=== PATIENT | female | born 1950 | race Caucasian/White ===

== ENCOUNTER 2017-06-24 14:52 | Emergency (ER) | payer BC ==
--- NOTE | 2017-06-24 16:22 | EDM.PDOC ---
ED HPI GENERAL MEDICAL PROBLEM - General Chief Complaint: Neurological Problem Stated Complaint: CONFUSION, "NOT FEELING RIGHT" Time Seen by Provider: 06/24/17 15:00 Source of Information: Reports: Patient, Family History Limitations: Reports: Altered Mental Status - History of Present Illness INITIAL COMMENTS - FREE TEXT/NARRATIVE: Patient presents to ER from clinic where initial work up was ordered (see copies and reports in [employer]) with family with concerns of acute confusion. 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 Called her at around noon and he relates she seemed fine on the phone, said she wasn't feeling well and was going to finish up a few things and come home early. They received a phone call then from the school about 45 minutes later that said they would meet them enroute to home as the school did not feel she was safe to drive and "seemed off ". [id number] who is a nurse states she seems to have trouble finding her words, will answer appropriately but takes time to answer each question. Patient states she has been feeling a bit nauseated lately but ROS is otherwise negative. She denies taking any new medications. relates she does seem "foggy like when she was on pain pills a couple of years ago for her knee surgery". She denies using any of them. Was seen by Dr. Maurer on Wednesday for arm pain but per notes, was not started on any new medications. Onset: Today, Sudden Duration: Hour(s): Location: Reports: Generalized Associated Symptoms: Reports: Confusion, Nausea/Vomiting, Other (fatigue). Denies: Chest Pain, Cough, cough w sputum, Diaphoresis, Fever/Chills, Headaches , Loss of Appetite, Malaise, Rash, Seizure, Shortness of Breath ( ), Syncope, Weakness - Related Data Allergies Allergy/AdvReac Type Severity Reaction Status Date / Time Sulfa (Sulfonamide AdvReac Rash Verified 06/24/17 15:59 Antibiotics) Home Meds: Home Meds Albuterol [Ventolin HFA] 2 puff INH QID PRN 07/13/13 [History] Aspirin [Low Dose Aspirin EC] 81 mg PO DAILY 07/13/13 [History] Cholecalciferol (Vitamin D3) [Vitamin D] 4,000 unit PO DAILY 07/13/13 [History] Fluticasone/Salmeterol [Advair 250-50 Diskus] 1 puff INH DAILY 07/13/13 [History ] Ibuprofen 400 mg PO BID PRN 07/13/13 [History] Lutein 20 mg PO DAILY 07/13/13 [History] Multivitamin [Multi Vitamin Daily] 1 each PO DAILY 07/13/13 [History] Naproxen Sodium [Aleve] 220 mg PO ASDIRECTED PRN 07/13/13 [History] [place]-3/DHA/Epa/Fish Oil [[place]-3 Fish Oil 1,000 MG Sfgl] 1,000 mg PO DAILY [History] Vitamin E 1,000 units PO DAILY 07/13/13 [History] predniSONE [Prednisone] 1 mg PO DAILY 07/13/13 [History] Fluticasone/Salmeterol [Advair 250-50 Diskus] 1 inh INH BID PRN 06/24/17 [ History] Past Medical History Respiratory History: Reports: Asthma Musculoskeletal History: Reports: Other (See Below) (inflammatory arthritis) Social & Family History - Family History Family Medical History: Noncontributory - Tobacco Use Smoking Status *Q: Never Smoker - Caffeine Use Caffeine Use: Reports: None - Recreational Drug Use Recreational Drug Use: No ED ROS GENERAL - Review of Systems Review Of Systems: See Below Constitutional: Reports: Malaise, Fatigue. Denies: Fever, Chills, Weakness, Decreased Appetite HEENT: Denies: Ear Discharge, Ear Pain, Rhinitis, Sinus Problem, Throat Pain, Vertigo, Vision Change Respiratory: Denies: Shortness of Breath, Pleuritic Chest Pain, Cough Cardiovascular: Denies: Chest Pain, Edema, Lightheadedness Endocrine: Reports: Fatigue GI/Abdominal: Reports: Diarrhea, Nausea. Denies: Abdominal Pain, Vomiting : Reports: No Symptoms Musculoskeletal: Reports: Arm Pain, Joint Pain Skin: Reports: No Symptoms Neurological: Reports: Confusion, Dizziness, Trouble Speaking (slow to answer questions but does answer them appropriately), Weakness. Denies: Headache, Numbness, Paresthesia, Syncope, Tingling Psychiatric: Reports: No Symptoms - Physical Exam Exam: See Below General Appearance: Alert, WD/WN. No: Anxious Eye Exam: Bilateral Eye: EOMI, PERRL Ears: Normal External Exam, Normal TMs Nose: Normal Inspection, Normal Mucosa, No Blood Throat/Mouth: Normal Inspection, Normal Oropharynx Head Exam: Normocephalic Neck: Normal Inspection, Supple, Non-Tender Respiratory/Chest: No Respiratory Distress, Lungs Clear, Normal Breath Sounds Cardiovascular: Regular Rate, Rhythm GI/Abdominal: Normal Bowel Sounds, Soft, Non-Tender Neuro Exam (Abbreviated): Alert, Oriented, CN II-XII Intact, Normal Cognition, Normal Gait, No Motor/Sensory Deficits, Slow to Respond Extremities: Normal Inspection, Normal Capillary Refill Psychiatric: Normal Affect, Normal Mood Skin Exam: Warm, Dry Course - Vital Signs Last Recorded V/S: Last Vital Signs Temp 97.4 F 06/24/17 14:53 Pulse 77 06/24/17 14:53 Resp 20 06/24/17 14:53 BP 145/74 H 06/24/17 14:53 Pulse Ox 95 06/24/17 14:53 - Orders/Labs/Meds Orders: Active Orders 24 hr Category Date Time Status CULTURE URINE [RM] Stat Lab 06/24/17 15:00 Received DRUG SCREEN URINE BIORAD [URCHEM] Stat Lab 06/24/17 15:16 Ordered - Re-Assessments/Exams Free Text/Narrative Re-Assessment/Exam: 06/24/17 16:40 Patient work up to this point is negative. Few bacteria in urine, sodium 132, otherwise all normal. Did discuss with family and initially plan to admit to observation but family decided would prefer her to be transferred to [facility] for further neurological work up. Contacted Dr. Stafford at [facility], status given, agreed to accept patient in transfer. Risks and benefits of transfer discussed with patient and . Risks of transfer include worsening of condition, vehicle crash and even . Benefits of transfer include specialized neurological work up. risks of nontransfer include worsening status and lack of specialized care. Benefits include care close to home and usual PCP. Agreed to transfer. Departure - Departure Time of Disposition: 16:44 Disposition: DC/Tfer to Acute Hospital 02 Condition: Undetermined Clinical Impression: Expressive aphasia - Discharge Information Referrals: Karina Montelongo PA [Primary Care Provider] - Additional Instructions: Transfer BLS to [facility] to Dr. Stafford - My Orders Last 24 Hours: My Active Orders 06/24/17 15:00 CULTURE URINE [RM] Stat 06/24/17 15:16 DRUG SCREEN URINE BIORAD [URCHEM] Stat - Assessment/Plan Last 24 Hours: My Active Orders 06/24/17 15:00 CULTURE URINE [RM] Stat 06/24/17 15:16 DRUG SCREEN URINE BIORAD [URCHEM] Stat
[2017-06-24] MEDS ORDERED: Sodium Chloride 0.9% 1,000 ML IV SCH (16:45)
== END 2017-06-24 17:07 ==
LOC: CC.ED 14:52
DX: R47.01 Aphasia (principal); J45.909 Unspecified asthma, uncomplicated; R41.0 Disorientation, unspecified; R42 Dizziness and giddiness; Z79.82 Long term (current) use of aspirin; Z79.899 Other long term (current) drug therapy; Z88.2 Allergy status to sulfonamides; Z79.51 Long term (current) use of inhaled steroids
CPT/HCPCS: 36415; 70450; 80048; 81001; 84484; 85025; 86140; 87086; 87804; 93005; 99285; J7030

== ENCOUNTER 2017-07-02 10:54 | Inpatient (IN) | payer BC, MEDICARE ==
[2017-07-02] MEDS ORDERED: Temazepam 15 MG Cap PO PRN (17:39)
[2017-07-02] MEDS ORDERED: Ondansetron 4 MG/2 ML SDV IV PRN (17:39)
[2017-07-02] MEDS ORDERED: Magnesium Hydroxide 400 MG/5 ML Susp 30 ML Cup PO PRN (17:39)
[2017-07-02] MEDS ORDERED: Albuterol 8 GM Inhaler INH PRN (17:48)
[2017-07-02] MEDS ORDERED: NAPROXEN SODIUM 220 MG PO PRN (17:48)
[2017-07-02] MEDS ORDERED: Ibuprofen 200 MG Tab PO PRN (17:48)
[2017-07-02] MEDS: Enoxaparin 40 MG/0.4 ML Syringe SUBCUT SCH (18:18)
[2017-07-02] MEDS: ACYCLOVIR IV SCH (19:11)
[2017-07-02] MEDS: SODIUM CHLORIDE 0.9% IV SCH (19:11)
--- NOTE | 2017-07-02 19:39 | PCM.HP ---
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 She was originally admitted to [facility] in [place] on 06/24/2017 after being transferred from our ED for AMS. Originally her head CT was negative. She was transferred as she was having some difficulty speaking. MRI at [facility] showed bitemporal abnormalities suggesting herpes encephalitis. Spinal tap was completed. Meningitis/encephalitis panel by PCR was negative, as well as seperate HSV by PCR. Neurology was consulted and they also felt that it was herpes encephalitis. She has improved greatly with IV acyclovir. She is to complete a 21 day course of acyclovir. At time of swing bed admission, she needs an additional 14 days. Patient has no complaints at time of assessment. She reports she feels better. She is feeling less confused. Does not have any complaints. Symptom Onset Date: 06/24/17 Duration of Symptoms: Reports: Improving, Resolved Prior to Arrival - Related Data Allergies/Adverse Reactions: Allergies Allergy/AdvReac Type Severity Reaction Status Date / Time Sulfa (Sulfonamide AdvReac Rash Verified 07/02/17 12:10 Antibiotics) Home Medications: Home Meds Albuterol [Ventolin HFA] 2 puff INH QID PRN 07/13/13 [History] Aspirin [Low Dose Aspirin EC] 81 mg PO DAILY 07/13/13 [History] Ibuprofen 400 mg PO BID PRN 07/13/13 [History] Lutein 20 mg PO DAILY 07/13/13 [History] Multivitamin [Multi Vitamin Daily] 1 each PO DAILY 07/13/13 [History] Naproxen Sodium [Aleve] 220 mg PO ASDIRECTED PRN 07/13/13 [History] [place]-3/DHA/Epa/Fish Oil [[place]-3 Fish Oil 1,000 MG Sfgl] 1,000 mg PO DAILY [History] Vitamin E 1,000 units PO DAILY 07/13/13 [History] predniSONE [Prednisone] 2 mg PO DAILY 07/13/13 [History] Fluticasone/Salmeterol [Advair 250-50 Diskus] 1 inh INH BID PRN 06/24/17 [ History] Cholecalciferol (Vitamin D3) [Vitamin D3] 5,000 unit PO DAILY 07/02/17 [History] Past Medical History Respiratory History: Reports: Asthma Musculoskeletal History: Reports: Other (See Below) (inflammatory arthritis) Neurological History: Reports: Other (See Below) Other Neuro History: brain inflammation Social & Family History - Family History Family Medical History: Noncontributory - Tobacco Use Smoking Status *Q: Never Smoker - Caffeine Use Caffeine Use: Reports: None - Recreational Drug Use Recreational Drug Use: No H&P Review of Systems - Review of Systems: Review Of Systems: ROS reveals no pertinent complaints other than HPI. Neurological: Reports: Confusion. Denies: Pre-Existing Deficit, Difficulty Walking, Change in Speech, Gait Disturbance Exam - Exam Exam: See Below - Vital Signs Vital Signs: Last Vital Signs Temp 98.2 F 07/02/17 17:39 Pulse 71 07/02/17 17:39 Resp 20 07/02/17 17:39 BP 114/61 07/02/17 17:39 Pulse Ox 100 07/02/17 17:39 Weight: 194 lb 10.691 oz - Exam Quality Assessment: DVT Prophylaxis General: Alert, Oriented, 4 HEENT: PERRLA, Hearing Intact, Mucosa Moist & [place], Nares Patent, Normal Nasal Septum, Posterior Pharynx Clear, Conjunctiva Clear, EOMI, EACs Clear, TMs Clear Neck: Supple, Trachea Midline, 2 Lungs: Clear to Auscultation, Normal Respiratory Effort Cardiovascular: Regular Rate, Regular Rhythm GI/Abdominal Exam: Normal Bowel Sounds, Soft, Non-Tender, No Organomegaly, No Distention, No Abnormal Bruit, No Mass, Pelvis Stable Back Exam: Normal Inspection, Full Range of Motion, NT Extremities: Normal Inspection, Normal Range of Motion, Non-Tender, No Pedal Edema, Normal Capillary Refill Skin: Warm, Dry, Intact Neurological: Cranial Nerves Intact, Normal Speech. No: Focal Deficit Neuro Extensive - Mental Status: Alert, Oriented x3, Normal Mood/Affect, Normal Cognition, Memory Intact Neuro Extensive - Motor, Sensory, Reflexes: CN II-XII Intact, Normal Gait, Normal Reflexes Psychiatric: Alert, Normal Affect, Normal Mood *Q Meaningful Use (ADM) - VTE *Q VTE Criteria *Q: - Stroke *Q Stroke Criteria *Q: - AMI *Q AMI Criteria *Q: - Problem List (1) Herpes encephalitis SNOMED Code(s): 201665635 ICD Code: B00.4 - HERPESVIRAL ENCEPHALITIS Status: Acute Current Visit: Yes Problem List Initiated/Reviewed/Updated: Yes Orders Last 24hrs: Active Orders 24 hr Category Date Time Status Patient Status [ADT] Routine ADT 07/02/17 17:39 Active Antiembolic Devices [RC] 1000,2200 Care 07/02/17 17:45 Active Oxygen Therapy [RC] .PRN Care 07/02/17 17:39 Active Up With Assistance [RC] .PRN Care 07/02/17 17:39 Active Vital Signs [RC] 0800,2000 Care 07/02/17 17:39 Active Regular Diet [DIET] Diet 07/02/17 Dinner Active Acetaminophen [Tylenol] Med 07/02/17 17:39 Active 650 mg PO Q4H PRN Acyclovir [Zovirax] 615 mg Med 07/02/17 18:00 Active Sodium Chloride 0.9% [Normal Saline] 100 ml IV Q8H Albuterol [Ventolin HFA] Med 07/02/17 17:48 Active 0 gm INH QID PRN Aspirin [Halfprin] Med 07/03/17 08:00 Active 81 mg PO DAILY Enoxaparin [Lovenox] Med 07/02/17 17:45 Active 40 mg SUBCUT Q24H Heparin Sodium [Heparin Lock Flush 100 Units/ML] Med 07/02/17 17:47 Active 300 units FLUSH ASDIRECTED PRN Ibuprofen [Motrin] Med 07/02/17 17:48 Active 400 mg PO BID PRN Lutein [Lutein] Med 07/03/17 08:00 Pending 20 mg PO DAILY Magnesium Hydroxide [Milk of Magnesia] Med 07/02/17 17:39 Active 30 ml PO Q12H PRN Mometasone/Formoterol [Dulera 200-5 MCG] Med 07/02/17 20:00 Active 2 puff IH BID PRN Ondansetron [Zofran] Med 07/02/17 17:39 Active 4 mg IV Q6H PRN Temazepam [Restoril] Med 07/02/17 17:39 Active 15 mg PO BEDTIME PRN predniSONE Med 07/03/17 08:00 Active 2 mg PO DAILY Antiembolic Hose [OM.PC] Per Unit Routine Oth 07/02/17 17:43 Ordered Resuscitation Status Routine Resus Stat 07/02/17 17:39 Ordered Medication Orders Acetaminophen (Tylenol) 650 mg PO Q4H PRN PRN Reason: Pain (Mild 1-3)/fever Albuterol (Ventolin Hfa) 0 gm INH QID PRN PRN Reason: Shortness of Breath Aspirin (Halfprin) 81 mg PO DAILY [facility] Enoxaparin Sodium (Lovenox) 40 mg SUBCUT Q24H [facility] Last Admin: 07/02/17 18:18 Dose: 40 mg Heparin Sodium (Porcine) (Heparin Lock Flush 100 Units/Ml) 300 units FLUSH ASDIRECTED PRN PRN Reason: IV Use Acyclovir 615 mg/ Sodium (Chloride) 112.3 mls @ 112.3 mls/hr IV Q8H [facility] Last Admin: 07/02/17 19:11 Dose: 112.3 mls/hr Ibuprofen (Motrin) 400 mg PO BID PRN PRN Reason: Pain Magnesium Hydroxide (Milk Of Magnesia) 30 ml PO Q12H PRN PRN Reason: Constipation Mometasone Furoate/Formoterol Fumar (Dulera 200-5 Mcg) 2 puff IH BID PRN PRN Reason: Shortness of Breath Lutein 20mg 20 mg PO DAILY [facility] Ondansetron HCl (Zofran) 4 mg IV Q6H PRN PRN Reason: Nausea/Vomiting Prednisone (Prednisone) 2 mg PO DAILY [facility] Temazepam (Restoril) 15 mg PO BEDTIME PRN PRN Reason: Sleep Assessment/Plan Comment:: IV acyclovir as dosed by infectious disease. 615 mg Q 8 hours x 14 days. Patient will need treatment until 07/16/2017.
[2017-07-02] MEDS ORDERED: Formoterol/Mometasone 200-5 MCG 8.8 GM Inhaler IH PRN (20:00)
[2017-07-03] MEDS: ACYCLOVIR IV SCH ×3 (01:29→17:33)
[2017-07-03] MEDS: SODIUM CHLORIDE 0.9% IV SCH ×3 (01:29→17:33)
[2017-07-03] MEDS: predniSONE 1 MG Tab PO SCH (08:10)
[2017-07-03] MEDS: Aspirin 81 MG Tab.EC PO SCH (08:10)
[2017-07-03] MEDS: Acetaminophen 325 MG Tab PO PRN (08:12)
[2017-07-03] MEDS: Enoxaparin 40 MG/0.4 ML Syringe SUBCUT SCH (17:32)
[2017-07-04] MEDS: SODIUM CHLORIDE 0.9% IV SCH ×3 (02:05→17:26)
[2017-07-04] MEDS: ACYCLOVIR IV SCH ×3 (02:05→17:26)
[2017-07-04] MEDS ORDERED: predniSONE 1 MG Tab ONE (07:56)
[2017-07-04] MEDS: predniSONE 1 MG Tab PO SCH (08:25)
[2017-07-04] MEDS: Aspirin 81 MG Tab.EC PO SCH (08:25)
[2017-07-04] MEDS: Acetaminophen 325 MG Tab PO PRN (10:58)
[2017-07-04] MEDS: Enoxaparin 40 MG/0.4 ML Syringe SUBCUT SCH (17:26)
[2017-07-05] MEDS: SODIUM CHLORIDE 0.9% IV SCH ×3 (01:54→17:22)
[2017-07-05] MEDS: ACYCLOVIR IV SCH ×3 (01:54→17:22)
[2017-07-05] MEDS: predniSONE 1 MG Tab PO SCH (07:31)
[2017-07-05] MEDS: Aspirin 81 MG Tab.EC PO SCH (07:31)
--- NOTE | 2017-07-05 08:41 | PN ---
DATE: 07/03/2017 Janet Hi transferred to swing bed from [facility] with a viral encephalitis. She is on IV acyclovir, doing fine. Plan, continue present therapy. KAYDEN/NIKHIL /[id number]
[2017-07-05] MEDS: Enoxaparin 40 MG/0.4 ML Syringe SUBCUT SCH (17:22)
[2017-07-06] MEDS: ACYCLOVIR IV SCH ×3 (02:03→17:58)
[2017-07-06] MEDS: SODIUM CHLORIDE 0.9% IV SCH ×3 (02:03→17:58)
[2017-07-06] MEDS: Aspirin 81 MG Tab.EC PO SCH (07:30)
[2017-07-06] MEDS: predniSONE 1 MG Tab PO SCH (07:30)
[2017-07-06] MEDS: LUTEIN 25 MG PO SCH ×3 (08:53→09:52)
[2017-07-06] MEDS: Enoxaparin 40 MG/0.4 ML Syringe SUBCUT SCH (17:58)
[2017-07-07] MEDS: ACYCLOVIR IV SCH ×3 (01:25→18:14)
[2017-07-07] MEDS: SODIUM CHLORIDE 0.9% IV SCH ×3 (01:25→18:14)
[2017-07-07] MEDS: Aspirin 81 MG Tab.EC PO SCH (07:37)
[2017-07-07] MEDS: predniSONE 1 MG Tab PO SCH (07:37)
[2017-07-07] MEDS: LUTEIN 25 MG PO SCH (07:37)
[2017-07-07] MEDS: Acetaminophen 325 MG Tab PO PRN (10:03)
[2017-07-07] MEDS: Pantoprazole 40 MG Tab.CR PO SCH (10:03)
[2017-07-07] MEDS: Enoxaparin 40 MG/0.4 ML Syringe SUBCUT SCH (18:13)
[2017-07-08] MEDS: SODIUM CHLORIDE 0.9% IV SCH ×3 (01:56→18:29)
[2017-07-08] MEDS: ACYCLOVIR IV SCH ×3 (01:56→18:29)
[2017-07-08] MEDS ORDERED: Acyclovir 500 MG/10 ML SDV ONE (02:07)
[2017-07-08] MEDS: Pantoprazole 40 MG Tab.CR PO SCH (06:59)
[2017-07-08] MEDS: Aspirin 81 MG Tab.EC PO SCH (07:26)
[2017-07-08] MEDS: LUTEIN 25 MG PO SCH (07:26)
[2017-07-08] MEDS: predniSONE 1 MG Tab PO SCH (07:26)
[2017-07-08] MEDS: Acetaminophen 325 MG Tab PO PRN (07:29)
[2017-07-08] MEDS: Ondansetron 4 MG Tab.DIS PO PRN (10:17)
[2017-07-08] MEDS: Enoxaparin 40 MG/0.4 ML Syringe SUBCUT SCH (18:29)
[2017-07-09] MEDS: ACYCLOVIR IV SCH ×3 (01:55→17:52)
[2017-07-09] MEDS: SODIUM CHLORIDE 0.9% IV SCH ×3 (01:55→17:52)
[2017-07-09] MEDS: Pantoprazole 40 MG Tab.CR PO SCH (07:08)
[2017-07-09] MEDS: LUTEIN 25 MG PO SCH (07:58)
[2017-07-09] MEDS: predniSONE 1 MG Tab PO SCH (07:58)
[2017-07-09] MEDS: Aspirin 81 MG Tab.EC PO SCH (07:58)
[2017-07-09] MEDS: Acetaminophen 325 MG Tab PO PRN (07:59)
[2017-07-09] MEDS: [UNRECOGNIZED DRUG - REMARK] TOP SCH ×2 (16:36→20:15)
[2017-07-09] MEDS: Enoxaparin 40 MG/0.4 ML Syringe SUBCUT SCH (17:47)
[2017-07-10] MEDS: ACYCLOVIR IV SCH ×3 (02:02→17:24)
[2017-07-10] MEDS: SODIUM CHLORIDE 0.9% IV SCH ×3 (02:02→17:24)
[2017-07-10] MEDS: [UNRECOGNIZED DRUG - REMARK] TOP SCH ×6 (07:27→20:08)
[2017-07-10] MEDS: Pantoprazole 40 MG Tab.CR PO SCH (07:27)
[2017-07-10] MEDS: Aspirin 81 MG Tab.EC PO SCH (07:53)
[2017-07-10] MEDS: predniSONE 1 MG Tab PO SCH (07:53)
[2017-07-10] MEDS: LUTEIN 25 MG PO SCH (07:53)
[2017-07-10] MEDS: Acetaminophen 325 MG Tab PO PRN (07:54)
[2017-07-10] MEDS: Ondansetron 4 MG Tab.DIS PO PRN (10:04)
[2017-07-10] MEDS: Enoxaparin 40 MG/0.4 ML Syringe SUBCUT SCH (17:24)
[2017-07-11] MEDS: ACYCLOVIR IV SCH ×3 (02:04→17:42)
[2017-07-11] MEDS: SODIUM CHLORIDE 0.9% IV SCH ×3 (02:04→17:42)
[2017-07-11] MEDS: Pantoprazole 40 MG Tab.CR PO SCH (06:50)
[2017-07-11] MEDS: [UNRECOGNIZED DRUG - REMARK] TOP SCH ×6 (06:50→19:59)
[2017-07-11] MEDS: Aspirin 81 MG Tab.EC PO SCH (07:35)
[2017-07-11] MEDS: predniSONE 1 MG Tab PO SCH (07:35)
[2017-07-11] MEDS: LUTEIN 25 MG PO SCH (07:35)
[2017-07-11] MEDS: Acetaminophen 325 MG Tab PO PRN (07:36)
[2017-07-11] MEDS: Enoxaparin 40 MG/0.4 ML Syringe SUBCUT SCH (17:41)
[2017-07-12] MEDS: ACYCLOVIR IV SCH ×3 (02:05→17:06)
[2017-07-12] MEDS: SODIUM CHLORIDE 0.9% IV SCH ×3 (02:05→17:06)
[2017-07-12] MEDS: [UNRECOGNIZED DRUG - REMARK] TOP SCH ×6 (06:52→19:52)
[2017-07-12] MEDS: Pantoprazole 40 MG Tab.CR PO SCH (06:52)
[2017-07-12] MEDS: predniSONE 1 MG Tab PO SCH (07:40)
[2017-07-12] MEDS: Aspirin 81 MG Tab.EC PO SCH (07:40)
[2017-07-12] MEDS: LUTEIN 25 MG PO SCH (07:40)
[2017-07-12] MEDS: Ondansetron 4 MG Tab.DIS PO PRN (07:57)
[2017-07-12] MEDS: Enoxaparin 40 MG/0.4 ML Syringe SUBCUT SCH (17:06)
[2017-07-13] MEDS: SODIUM CHLORIDE 0.9% IV SCH ×3 (02:07→17:26)
[2017-07-13] MEDS: ACYCLOVIR IV SCH ×3 (02:07→17:26)
[2017-07-13] MEDS: Pantoprazole 40 MG Tab.CR PO SCH (06:51)
[2017-07-13] MEDS: [UNRECOGNIZED DRUG - REMARK] TOP SCH ×6 (06:51→20:24)
[2017-07-13] MEDS: Aspirin 81 MG Tab.EC PO SCH (07:25)
[2017-07-13] MEDS: predniSONE 1 MG Tab PO SCH (07:25)
[2017-07-13] MEDS: LUTEIN 25 MG PO SCH (07:26)
[2017-07-13] MEDS: Acetaminophen 325 MG Tab PO PRN (07:28)
[2017-07-13] MEDS: Enoxaparin 40 MG/0.4 ML Syringe SUBCUT SCH (17:25)
[2017-07-14] MEDS: SODIUM CHLORIDE 0.9% IV SCH ×3 (01:43→17:52)
[2017-07-14] MEDS: ACYCLOVIR IV SCH ×3 (01:43→17:52)
[2017-07-14] MEDS: predniSONE 1 MG Tab PO SCH (07:12)
[2017-07-14] MEDS: Aspirin 81 MG Tab.EC PO SCH (07:12)
[2017-07-14] MEDS: Pantoprazole 40 MG Tab.CR PO SCH (07:12)
[2017-07-14] MEDS: [UNRECOGNIZED DRUG - REMARK] TOP SCH ×6 (07:12→21:20)
[2017-07-14] MEDS: LUTEIN 25 MG PO SCH (07:13)
[2017-07-14] MEDS: Acetaminophen 325 MG Tab PO PRN (09:52)
[2017-07-14] MEDS: Enoxaparin 40 MG/0.4 ML Syringe SUBCUT SCH (17:52)
[2017-07-15] MEDS: SODIUM CHLORIDE 0.9% IV SCH ×3 (01:56→17:32)
[2017-07-15] MEDS: ACYCLOVIR IV SCH ×3 (01:56→17:32)
[2017-07-15] MEDS: [UNRECOGNIZED DRUG - REMARK] TOP SCH ×3 (07:00→13:25)
[2017-07-15] MEDS: predniSONE 1 MG Tab PO SCH (07:51)
[2017-07-15] MEDS: Aspirin 81 MG Tab.EC PO SCH (07:51)
[2017-07-15] MEDS: Pantoprazole 40 MG Tab.CR PO SCH (07:51)
[2017-07-15] MEDS: LUTEIN 25 MG PO SCH (07:53)
[2017-07-15] MEDS: Acetaminophen 325 MG Tab PO PRN (08:47)
--- NOTE | 2017-07-15 16:45 | PCM.PN ---
- General Info Date of Service: 07/15/17 Admission Dx/Problem (Free Text): Admission Diagnosis/Problem Admission Diagnosis/Problem Encephalitis Subjective Update: Patient reports she has been feeling well throughout hospitalization. Does report she still has some difficulty finding peoples names, but otherwise feels her memory is back to baseline. She denies any headache, dizziness, lightheadness. She does report she got a cold sore on her right posterior lip. She has been taking topical acycolvir for that as well. Otherwise she has had an uneventful swing bed stay. Functional Status: Reports: Pain Controlled, Tolerating Diet, Ambulating, Urinating. Denies: New Symptoms - Review of Systems General: Reports: No Symptoms. Denies: Fever, Weakness, Fatigue, Chills HEENT: Reports: Other (cold sore). Denies: Headaches, Sore Throat Pulmonary: Reports: No Symptoms Cardiovascular: Reports: No Symptoms Gastrointestinal: Reports: No Symptoms Genitourinary: Reports: No Symptoms Musculoskeletal: Reports: No Symptoms Skin: Reports: No Symptoms Neurological: Denies: Confusion, Dizziness, Headache, Numbness, Paresthesia, Pre -Existing Deficit, Seizure, Syncope, Tingling, Tremors, Weakness, Change in Speech Psychiatric: Reports: No Symptoms - Patient Data Vitals - Most Recent: Last Vital Signs Temp 97.1 F 07/15/17 08:00 Pulse 65 07/15/17 08:00 Resp 16 07/15/17 08:00 BP 118/63 07/15/17 08:00 Pulse Ox 99 07/15/17 08:00 Weight - Most Recent: 195 lb Med Orders - Current: Current Medications Acetaminophen (Tylenol) 650 mg PO Q4H PRN PRN Reason: Pain (Mild 1-3)/fever Last Admin: 07/15/17 08:47 Dose: 650 mg Albuterol (Ventolin Hfa) 0 gm INH QID PRN PRN Reason: Shortness of Breath Aspirin (Halfprin) 81 mg PO DAILY [facility] Last Admin: 07/15/17 07:51 Dose: 81 mg Enoxaparin Sodium (Lovenox) 40 mg SUBCUT Q24H [facility] Last Admin: 07/14/17 17:52 Dose: 40 mg Heparin Sodium (Porcine) (Heparin Lock Flush 100 Units/Ml) 300 units FLUSH ASDIRECTED PRN PRN Reason: IV Use Last Admin: 07/15/17 09:26 Dose: 300 units Acyclovir 615 mg/ Sodium (Chloride) 112.3 mls @ 112.3 mls/hr IV Q8H [facility] Last Admin: 07/15/17 09:23 Dose: 112.3 mls/hr Ibuprofen (Motrin) 400 mg PO BID PRN PRN Reason: Pain Magnesium Hydroxide (Milk Of Magnesia) 30 ml PO Q12H PRN PRN Reason: Constipation Mometasone Furoate/Formoterol Fumar (Dulera 200-5 Mcg) 2 puff IH BID PRN PRN Reason: Shortness of Breath Non-Formulary Medication (Nf Drug) 1 each TOP 6XDAY PRN PRN Reason: open lesion Ondansetron HCl (Zofran) 4 mg IV Q6H PRN PRN Reason: Nausea/Vomiting Ondansetron HCl (Zofran Odt) 4 mg PO Q6H PRN PRN Reason: Nausea/Vomiting Last Admin: 07/12/17 07:57 Dose: 4 mg Pantoprazole Sodium (Protonix) 40 mg PO DAILY@0700 [facility] Last Admin: 07/15/17 07:51 Dose: 40 mg Lutein 25 Mg Cap (Ptom) 1 each PO DAILY [facility] Last Admin: 07/15/17 07:53 Dose: 1 each Prednisone (Prednisone) 2 mg PO DAILY [facility] Last Admin: 07/15/17 07:51 Dose: 2 mg Temazepam (Restoril) 15 mg PO BEDTIME PRN PRN Reason: Sleep Discontinued Medications Acyclovir (Zovirax) Confirm Administered Dose 1,000 mg .ROUTE .STK-MED ONE Stop: 07/08/17 02:08 Last Admin: 07/08/17 02:18 Dose: Not Given Heparin Sodium (Porcine) (Heparin Lock Flush 100 Units/Ml) Confirm Administered Dose 500 units .ROUTE .STK-MED ONE Stop: 07/03/17 12:10 Last Admin: 07/03/17 17:33 Dose: 500 units Lutein 20mg 20 mg PO DAILY [facility] Last Admin: 07/04/17 08:00 Dose: Not Given Naproxen Sodium [ (Aleve] 220mg) 220 mg PO ASDIRECTED PRN PRN Reason: Pain Acyclovir 0.5% Ointment [facility] Non Form 0 each TOP 6XDAY [facility] Last Admin: 07/15/17 13:25 Dose: Not Given Prednisone (Prednisone) Confirm Administered Dose 1 mg .ROUTE .STK-MED ONE Stop: 07/04/17 07:57 Last Admin: 07/04/17 08:24 Dose: Not Given - Exam General: Alert, Oriented, No Acute Distress HEENT: Pupils Equal, Pupils Reactive, EOMI, Mucous Membr. Moist/[place] Neck: Supple Lungs: Clear to Auscultation, Normal Respiratory Effort Cardiovascular: Regular Rate, Regular Rhythm GI/Abdominal Exam: Normal Bowel Sounds, Soft, Non-Tender, No Organomegaly, No Distention, No Abnormal Bruit, No Mass, Pelvis Stable Back Exam: Normal Inspection, Full Range of Motion Extremities: Normal Inspection, Normal Range of Motion, Non-Tender, No Pedal Edema, Normal Capillary Refill Skin: Warm, Dry, Intact Neurological: No New Focal Deficit, Normal Gait, Normal Speech, Normal Tone, Sensation Intact, Cranial Nerves Intact Psy/Mental Status: Alert, Normal Affect, Normal Mood - Problem List & Annotations (1) Herpes encephalitis SNOMED Code(s): 636120733 Code(s): B00.4 - HERPESVIRAL ENCEPHALITIS Status: Acute Current Visit: Yes - Problem List Review Problem List Initiated/Reviewed/Updated: Yes - Plan Plan:: IV acyclovir as dosed by infectious disease. 615 mg Q 8 hours x 14 days total. Patient will need treatment until 07/17/2017. Will need to get 1 dose on 07/17/17 and then can be discharged home. This is a recertification visit. Patient needs to be in swing bed for an additional 2 days to finish remainder of antiviral treatment for herpes encephalitis. She will be discharged home following acyclovir dose on 2017. She will not require any home services. She will follow up outpatient with her PCP as well as neurologist in [place] as scheduled.
[2017-07-15] MEDS: Enoxaparin 40 MG/0.4 ML Syringe SUBCUT SCH (17:32)
[2017-07-16] MEDS: ACYCLOVIR IV SCH ×3 (01:53→18:02)
[2017-07-16] MEDS: SODIUM CHLORIDE 0.9% IV SCH ×3 (01:53→18:02)
[2017-07-16] MEDS: Pantoprazole 40 MG Tab.CR PO SCH (06:50)
[2017-07-16] MEDS: Aspirin 81 MG Tab.EC PO SCH (07:50)
[2017-07-16] MEDS: LUTEIN 25 MG PO SCH (07:51)
[2017-07-16] MEDS: predniSONE 1 MG Tab PO SCH (07:51)
[2017-07-16] MEDS: Acetaminophen 325 MG Tab PO PRN (07:52)
[2017-07-16] MEDS: ACYCLOVIR TOP PRN (09:44)
[2017-07-16] MEDS: Enoxaparin 40 MG/0.4 ML Syringe SUBCUT SCH (18:02)
[2017-07-17] MEDS: ACYCLOVIR IV SCH ×2 (01:15→10:28)
[2017-07-17] MEDS: SODIUM CHLORIDE 0.9% IV SCH ×2 (01:15→10:28)
[2017-07-17] MEDS: Pantoprazole 40 MG Tab.CR PO SCH (06:21)
[2017-07-17] MEDS: predniSONE 1 MG Tab PO SCH (07:53)
[2017-07-17] MEDS: Aspirin 81 MG Tab.EC PO SCH (07:53)
[2017-07-17] MEDS: ACYCLOVIR TOP PRN (07:53)
[2017-07-17] MEDS: Acetaminophen 325 MG Tab PO PRN (07:54)
[2017-07-17] MEDS: LUTEIN 25 MG PO SCH (07:57)
--- NOTE | 2017-07-17 13:27 | PCM.DCSUM1 ---
Discharge Summary - Hospital Course Free Text/Narrative:: Date of admission - 07/02/2017 Admitting provider - Dr. Maurer Admission diagnosis - Herpes encephalitis. Hospital course: Admitted to swing bed from [facility] in [place] after initial treatment of herpes encephalitis with IV acyclovir. Patient has completed the required regimen, and tolerated the therapy well with no complications. Vital signs are stable, and lab is within normal limits. She is ambulatory, eating, and drinking well. She is eliminating well with no difficulties. She denies any pain, SOB, or other concerns at this time. Review of systems: General - denies any problems, pain, sob. Skin - Negative Pulmonary - negative Chest - negative Psychiatric - negative All other systems negative Physical evaluation: General - standing up at bedside dressed with bags packed anticipating departure. Skin - Warm and dry Lungs - BBS clear in all lombardo Cardiac- No abnormal tones noted Neuro - no neuro deficits noted Psych - Mood is calm, enterprise project manager questions appropriately speaking in low normal toned conversation. No evidence of anxiety or depression noted. Discharge diagnosis: s/p herpes encephalitis Plan: D/C home in good condition. Instructed to follow p with her regular doctor for further medical problems. - Discharge Data Discharge Date: 07/17/17 Discharge Disposition: Home, Self-Care 01 Condition: Good - Discharge Plan Home Medications: Home Meds Albuterol [Ventolin HFA] 2 puff INH QID PRN 07/13/13 [History] Aspirin [Low Dose Aspirin EC] 81 mg PO DAILY 07/13/13 [History] Ibuprofen 400 mg PO BID PRN 07/13/13 [History] Lutein 20 mg PO DAILY 07/13/13 [History] Multivitamin [Multi-Vitamin Daily] 1 each PO DAILY 07/13/13 [History] Naproxen Sodium [Aleve] 220 mg PO ASDIRECTED PRN 07/13/13 [History] [place]wood-3/DHA/Epa/Fish Oil [Northwood-3 Fish Oil 1,000 MG Sfgl] 1,000 mg PO DAILY [History] Vitamin E 1,000 units PO DAILY 07/13/13 [History] predniSONE [Prednisone] 2 mg PO DAILY 07/13/13 [History] Fluticasone/Salmeterol [Advair 250-50 Diskus] 1 inh INH BID PRN 06/24/17 [ History] Cholecalciferol (Vitamin D3) [Vitamin D3] 5,000 unit PO DAILY 07/02/17 [History] Patient Handouts: Viral Encephalitis - Patient Data Vitals - Most Recent: Last Vital Signs Temp 98.1 F 07/17/17 08:00 Pulse 81 07/17/17 08:00 Resp 19 07/17/17 08:00 BP 119/61 07/17/17 08:00 Pulse Ox 90 L 07/17/17 08:00 Weight - Most Recent: 191 lb 5.78 oz Med Orders - Current: Current Medications Acetaminophen (Tylenol) 650 mg PO Q4H PRN PRN Reason: Pain (Mild 1-3)/fever Last Admin: 07/17/17 07:54 Dose: 650 mg Albuterol (Ventolin Hfa) 0 gm INH QID PRN PRN Reason: Shortness of Breath Aspirin (Halfprin) 81 mg PO DAILY [facility] Last Admin: 07/17/17 07:53 Dose: 81 mg Enoxaparin Sodium (Lovenox) 40 mg SUBCUT Q24H [facility] Last Admin: 07/16/17 18:02 Dose: 40 mg Heparin Sodium (Porcine) (Heparin Lock Flush 100 Units/Ml) 300 units FLUSH ASDIRECTED PRN PRN Reason: IV Use Last Admin: 07/17/17 02:25 Dose: 300 units Acyclovir 615 mg/ Sodium (Chloride) 112.3 mls @ 112.3 mls/hr IV Q8H [facility] Last Admin: 07/17/17 10:28 Dose: Not Given Ibuprofen (Motrin) 400 mg PO BID PRN PRN Reason: Pain Magnesium Hydroxide (Milk Of Magnesia) 30 ml PO Q12H PRN PRN Reason: Constipation Mometasone Furoate/Formoterol Fumar (Dulera 200-5 Mcg) 2 puff IH BID PRN PRN Reason: Shortness of Breath Acyclovir 0.5% (Ointment Long-Term) 1 each TOP 6XDAY PRN PRN Reason: open lesion Last Admin: 07/17/17 07:53 Dose: 1 each Ondansetron HCl (Zofran) 4 mg IV Q6H PRN PRN Reason: Nausea/Vomiting Ondansetron HCl (Zofran Odt) 4 mg PO Q6H PRN PRN Reason: Nausea/Vomiting Last Admin: 07/12/17 07:57 Dose: 4 mg Pantoprazole Sodium (Protonix) 40 mg PO DAILY@0700 [facility] Last Admin: 07/17/17 06:21 Dose: 40 mg Lutein 25 Mg Cap (Ptom) 1 each PO DAILY [facility] Last Admin: 07/17/17 07:57 Dose: 1 each Prednisone (Prednisone) 2 mg PO DAILY [facility] Last Admin: 07/17/17 07:53 Dose: 2 mg Temazepam (Restoril) 15 mg PO BEDTIME PRN PRN Reason: Sleep Discontinued Medications Acyclovir (Zovirax) Confirm Administered Dose 1,000 mg .ROUTE .STK-MED ONE Stop: 07/08/17 02:08 Last Admin: 07/08/17 02:18 Dose: Not Given Heparin Sodium (Porcine) (Heparin Lock Flush 100 Units/Ml) Confirm Administered Dose 500 units .ROUTE .ADOP-MED ONE Stop: 07/03/17 12:10 Last Admin: 07/03/17 17:33 Dose: 500 units Lutein 20mg 20 mg PO DAILY [facility] Last Admin: 07/04/17 08:00 Dose: Not Given Naproxen Sodium [ (Aleve] 220mg) 220 mg PO ASDIRECTED PRN PRN Reason: Pain Acyclovir 0.5% Ointment Long-Term Non Form 0 each TOP 6XDAY [facility] Last Admin: 07/15/17 13:25 Dose: Not Given Prednisone (Prednisone) Confirm Administered Dose 1 mg .ROUTE .Campanisto ONE Stop: 07/04/17 07:57 Last Admin: 07/04/17 08:24 Dose: Not Given *Q Meaningful Use (DIS) - VTE *Q VTE Criteria *Q: - Stroke *Q Stroke Criteria *Q: - AMI *Q AMI Criteria *Q:
== END 2017-07-17 13:25 | disposition home or self-care (01) | DRG 50 ==
LOC: UNDOADMIN 17:18 → CC.MS 17:18
PROVIDERS: ADMIT General Practice; ATTEND General Practice
DX: B00.4 Herpesviral encephalitis (principal); E78.5 Hyperlipidemia, unspecified; M06.9 Rheumatoid arthritis, unspecified; E66.9 Obesity, unspecified; Z88.2 Allergy status to sulfonamides; Z79.899 Other long term (current) drug therapy
CPT/HCPCS: 36415; 80053; 81001; 82150; 83735; 84443; 85025; 86140; A9270-GY; J0133; J1642; J1650; J7050

== ENCOUNTER → 2017-11-05 | Day surgery (SDC) | payer MEDICARE, BC ==
[~2017-11-05] MED LIST: Lactated Ringers 1,000 ML IV SCH; Lidocaine 4% Top Soln 5 ML LTA Syringe ONE; Lidocaine 4% Top Soln 5 ML LTA Syringe TOP ONE; Meperidine PF 25 MG/ML Syringe IV ONE; Meperidine PF 25 MG/ML Syringe ONE; Midazolam 1 MG/ML 2 ML SDV IV ONE; Midazolam 1 MG/ML 2 ML SDV ONE
--- NOTE | 2017-11-05 12:35 | OR ---
DATE OF OPERATION: 11/05/2017 PREOPERATIVE DIAGNOSIS: DYSPEPSIA WITH WEIGHT LOSS. POSTOPERATIVE DIAGNOSIS: DYSPEPSIA WITH WEIGHT LOSS. SURGEON: Charles Figueroa MD PROCEDURE: EGD WITH BIOPSIES X2, DION AND POLYP REMOVAL X1. ANESTHESIA: Conscious sedation. COMPLICATIONS: None. SPECIMEN: 1. Antral biopsy x2. 2. Antral DION. 3. Fundal adenomatous polyp. RECOMMENDATIONS: Medical followup with Dr. Maurer for consideration for diagnostic imaging of abdomen and pelvis given the patient's symptoms and weight loss. INDICATIONS: The patient has been having weight loss and poor appetite. She is slightly anemic on her lab work. Dr. Maurer sent her for EGD due to associated poor appetite. DESCRIPTION OF PROCEDURE: The patient was prepped and draped, placed in the left lateral decubitus position. A lubricated Olympus gastroscope was inserted over a bit and advanced to cricopharyngeus area and easily intubated in the esophagus. The esophageal lining was benign in its entire course. The Z-line was crisp and sharp at 40 cm. There was no hiatal hernia. No distal esophagitis, stricturing, ulceration, or Ward's changes. The scope was advanced into the stomach through the pylorus into the second portion of the duodenum. This and the duodenal bulb were completely benign. The scope was brought back into the stomach and retroflexed. The upper fundus and cardia were unremarkable. Upon straightening, the patient did have a small adenomatous polyp in the mid fundus, removed with a forceps in its entirety. The rest of the fundus of the stomach was completely benign. Thorough evaluation of the antrum showed no gross signs of any peptic ulcer disease, polyp, mass, or otherwise. There may have been some very mild inflammatory changes in and around the pyloric region. We did do 2 automotive sales representative biopsies of this area along with a DION test. Air was then suctioned from the stomach, and the scope was removed without complication. DAVID/NKIHIL /[id number]
== END ==
LOC: CC.SDS 09:46
PROVIDERS: ATTEND Family Medicine
DX: K29.50 Unspecified chronic gastritis without bleeding (principal); R63.4 Abnormal weight loss; D13.1 Benign neoplasm of stomach; Z88.2 Allergy status to sulfonamides; Z79.899 Other long term (current) drug therapy; Z79.82 Long term (current) use of aspirin
CPT/HCPCS: 87081; A9270-GY; J2175; J2250; J7120

== ENCOUNTER 2017-12-09 12:45 | Emergency (ER) | payer MEDICARE, BC ==
--- NOTE | 2017-12-09 13:33 | EDM.PDOC ---
ED HPI GENERAL MEDICAL PROBLEM - General Chief Complaint: General Stated Complaint: FEELING FAINT/DIZZY Time Seen by Provider: 12/09/17 13:05 Source of Information: Reports: Patient, Family (Iliana) History Limitations: Reports: No Limitations - History of Present Illness INITIAL COMMENTS - FREE TEXT/NARRATIVE: States that she forgot to take her pills this morning after breakfast like she normally does. Is on hydrocortisone since 11/27/17 and this is the first day that she has the hypotension and weakness occur. Daughter in law did give it to her at 11:15 when she wasn't feeling well and she is now feeling better. At home she was pale diaphoretic and weak with BP 78/40's. Currently she states that she feels tired but feels well. No complaints of any chest pain or SOB with it. Onset: Today Associated Symptoms: Denies: Chest Pain, Fever/Chills, Nausea/Vomiting, Shortness of Breath - Related Data Allergies Allergy/AdvReac Type Severity Reaction Status Date / Time Sulfa (Sulfonamide AdvReac Rash Verified 12/09/17 12:48 Antibiotics) Home Meds: Home Meds Albuterol [Ventolin HFA] 2 puff INH QID PRN 07/13/13 [History] Aspirin [Low Dose Aspirin EC] 81 mg PO DAILY 07/13/13 [History] Lutein 20 mg PO DAILY 07/13/13 [History] Naproxen Sodium [Aleve] 220 mg PO DAILY PRN 07/13/13 [History] Cholecalciferol (Vitamin D3) [Vitamin D3] 5,000 unit PO DAILY 07/02/17 [History] Acetaminophen [Acetaminophen 8 Hour] 650 mg PO BEDTIME 10/15/17 [History] Pantoprazole Sodium 40 mg PO DAILY 10/15/17 [History] Fluticasone/Salmeterol [Advair 250-50] 1 puff PO Q12HR PRN 11/03/17 [History] Hydrocortisone 10 mg PO DAILY 12/09/17 [History] Past Medical History Respiratory History: Reports: Asthma Musculoskeletal History: Reports: Other (See Below) Neurological History: Reports: Other (See Below) 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 Denies: Fever, Chills HEENT: Reports: No Symptoms Respiratory: Reports: No Symptoms Cardiovascular: Reports: Lightheadedness GI/Abdominal: Reports: No Symptoms : Reports: No Symptoms Musculoskeletal: Reports: No Symptoms Skin: Reports: Pallor Neurological: Denies: Confusion, Dizziness, Headache ED EXAM, GENERAL - Physical Exam Exam: See Below Exam Limited By: No Limitations General Appearance: Alert, WD/WN, No Apparent Distress Ears: Normal External Exam, Normal Canal, Normal TMs Nose: Normal Inspection Throat/Mouth: Normal Inspection, Normal Oropharynx, Normal Voice, No Airway Compromise Head: Atraumatic, Normocephalic Neck: Normal Inspection, Supple, Non-Tender, Full Range of Motion Respiratory/Chest: No Respiratory Distress, Lungs Clear, Normal Breath Sounds Cardiovascular: Regular Rate, Rhythm GI/Abdominal: Normal Bowel Sounds, Soft, Non-Tender Extremities: Normal Inspection, No Pedal Edema, Normal Capillary Refill Neurological: Alert, Oriented Psychiatric: Normal Affect Skin Exam: Warm, Dry, Intact, Normal Color Course - Vital Signs Last Recorded V/S: Last Vital Signs Temp 98.2 F 12/09/17 13:05 Pulse 57 L 12/09/17 13:05 Resp 18 12/09/17 13:05 BP 101/63 12/09/17 13:05 Pulse Ox 99 12/09/17 13:05 - Orders/Labs/Meds Labs: Laboratory Tests 12/09/17 12/09/17 Range/Units 13:16 13:16 WBC 7.5 (5.0-10.0) 10^3/uL RBC 3.67 L (4.00-5.50) 10^6/uL Hgb 11.3 L (12.0-16.0) g/dL Hct 35.0 L (37.0-47.0) % MCV 95.4 H (82.0-94.0) fL MCH 30.8 (27.0-32.0) pg MCHC 32.3 L (33.0-38.0) g/dL RDW Coeff of Sean 13.7 (11.0-15.0) % Plt Count 238 (150-400) 10^3/uL Add Manual Diff Yes Neutrophils % (Manual) 51 (35-85) % Band Neutrophils % 3 (0-5) % Lymphocytes % (Manual) 30 (21-55) % Monocytes % (Manual) 7 (2-12) % Eosinophils % (Manual) 9 H (0-5) % Absolute Neutrophils 4.05 (1.80-7.00) 10^3/uL Lymphocytes # (Manual) 2.25 (1.00-4.80) 10^3/uL Monocytes # (Manual) 0.53 (0.00-0.80) 10^3/uL Eosinophils # (Manual) 0.68 H (0.00-0.45) 10^3/uL Sodium 144 (136-145) mEq/L Potassium 3.6 (3.5-5.0) mEq/L Chloride 106 (98-106) mEq/L Carbon Dioxide 28 (21-32) mmol/L BUN 12 (7-18) mg/dL Creatinine 0.8 (0.6-1.0) mg/dL Est Cr Clr Drug Dosing 65.45 mL/min Estimated GFR (MDRD) > 60 (>=60) mL/min Glucose 117 H D (75-99) mg/dL Calcium 8.9 (8.4-10.1) mg/dL Lactate Dehydrogenase 278 H (100-190) U/L Troponin I < 0.017 (0.00-0.06) ng/mL Departure - Departure Time of Disposition: 13:59 Disposition: Home, Self-Care 01 Condition: Good Clinical Impression: Gabriel disease Hypotension Qualifiers: Hypotension type: orthostatic hypotension Qualified Code(s): I95.1 - Orthostatic hypotension - Discharge Information Instructions: Gabriel Disease Forms: ED Department Discharge Additional Instructions: Continue to take meds every morning as directed. 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 Is feeling back to baseline except she is tired. Instructed to rest today Follow up in the clinic if any new concerns noted. Will need to find routine at home to make sure that her meds are taken every morning and not forgotten.
[2017-12-09 13:35] LABS: CHLORIDE,CL 106 mEq/L (98-106); SODIUM,NA 144 mEq/L (136-145)
== END 2017-12-09 14:10 | disposition home or self-care (01) ==
LOC: CC.ED 12:45
DX: I95.1 Orthostatic hypotension (principal); E27.1 Primary adrenocortical insufficiency; Z79.899 Other long term (current) drug therapy; Z88.2 Allergy status to sulfonamides; Z79.82 Long term (current) use of aspirin
CPT/HCPCS: 36415; 80048; 83615; 84484; 85025; 93005; 99284

== ENCOUNTER 2020-03-21 14:14 | Emergency (ER) | payer MEDICARE, BC ==
[2020-03-21] MEDS ORDERED: Acetaminophen 500 MG Tab PO ONE (15:30)
--- NOTE | 2020-03-21 16:09 | EDM.PDOC ---
ED HPI GENERAL MEDICAL PROBLEM - General Chief Complaint: General Stated Complaint: confusion Time Seen by Provider: 03/21/20 15:10 Source of Information: Reports: Patient History Limitations: Reports: No Limitations - History of Present Illness INITIAL COMMENTS - FREE TEXT/NARRATIVE: Janet is a 70 year old who presents to ER with son with increased confusion. Son relates when he went to her house today, noted at around 1030 that she wasn't responding per her norm. Did answer all questions but seemed slower to react. Has a history of Gabriel's disease, had not taken her meds today or possibly yesterday so was concerned about that. Did give her meds but has not seemed to improve. Relates she "gets like this when she had previous issues with infection. 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 Initially denied any exposure to covid that he is aware, have been wearing their masks yet does relate that is daughter is currently in quarantine and he has not been feeling all that well himself. patient denies shortness of breath. No chest pain. has not had a cough. No nausea, vomiting or diarrhea. Does admit that she hasn't been eating all that well. has been trying to take fluids in. Unsure if has had a fever at home. Denies loss of taste or smell. Denies urinary symptoms. Onset: Gradual Duration: Hour(s):, Constant Location: Reports: Generalized Associated Symptoms: Reports: Confusion, Malaise, Weakness. Denies: Chest Pain, Cough, Fever/Chills, Headaches, Loss of Appetite, Nausea/Vomiting, Shortness of Breath - Related Data Allergies Allergy/AdvReac Type Severity Reaction Status Date / Time Sulfa (Sulfonamide AdvReac Rash Verified 03/21/20 15:03 Antibiotics) Home Meds: Home Meds Albuterol [Ventolin HFA] 2 puff INH QID PRN 07/13/13 [History] Aspirin [Low Dose Aspirin EC] 81 mg PO DAILY 07/13/13 [History] Lutein 20 mg PO DAILY 07/13/13 [History] Naproxen Sodium [Aleve] 220 mg PO DAILY PRN 07/13/13 [History] Cholecalciferol (Vitamin D3) [Vitamin D3] 5,000 unit PO DAILY 07/02/17 [History] Acetaminophen [Acetaminophen 8 Hour] 650 mg PO BEDTIME 10/15/17 [History] Pantoprazole Sodium 40 mg PO DAILY 10/15/17 [History] Fluticasone/Salmeterol [Advair 250-50] 1 puff PO Q12HR PRN 11/03/17 [History] Hydrocortisone 10 mg PO QAM 12/09/17 [History] Hydrocortisone [Cortef] 5 mg PO 1200 03/21/20 [History] Past Medical History Respiratory History: Reports: Asthma Musculoskeletal History: Reports: Other (See Below) Neurological History: Reports: Other (See Below) Other Neuro History: brain inflammation Endocrine/Metabolic History: Reports: [place]'s Disease - Infectious Disease History Infectious Disease History: Reports: Shingles Social & Family History - Family History Family Medical History: Noncontributory - Tobacco Use Tobacco Use Status *Q: Never Tobacco User Second Hand Smoke Exposure: No - Caffeine Use Caffeine Use: Reports: None - Living Situation & Occupation Living situation: Reports: , with Spouse Occupation: Retired ED ROS GENERAL - Review of Systems Review Of Systems: See Below Constitutional: Reports: Chills, Malaise, Weakness, Fatigue, Decreased Appetite. Denies: Fever HEENT: Denies: Ear Pain, Rhinitis, Sinus Problem, Throat Pain Respiratory: Denies: Shortness of Breath, Cough Cardiovascular: Denies: Chest Pain, Edema, Lightheadedness Endocrine: Reports: Fatigue GI/Abdominal: Denies: Abdominal Pain, Constipation, Diarrhea, Nausea, Vomiting : Reports: No Symptoms Musculoskeletal: Reports: No Symptoms Skin: Reports: No Symptoms Neurological: Reports: Confusion, Weakness. Denies: Dizziness, Headache ED EXAM, GENERAL - Physical Exam Exam: See Below Exam Limited By: No Limitations General Appearance: Alert, WD/WN, No Apparent Distress Eye Exam: Bilateral Eye: EOMI, PERRL Ears: Normal External Exam, Normal TMs Nose: Normal Inspection, Normal Mucosa, No Blood Throat/Mouth: Normal Inspection, Normal Oropharynx Head: Normocephalic Neck: Normal Inspection, Supple, Non-Tender Respiratory/Chest: No Respiratory Distress, Lungs Clear, Normal Breath Sounds Cardiovascular: Regular Rate, Rhythm GI/Abdominal: Normal Bowel Sounds, Soft, Non-Tender Neurological: Alert, Oriented (oreinted x3, does take time to process prior to answering questions), CN II-XII Intact, No Motor/Sensory Deficits Skin Exam: Warm, Dry Course - Vital Signs Last Recorded V/S: Last Vital Signs Temp 100.1 F 03/21/20 15:55 Pulse 92 03/21/20 15:25 Resp 18 03/21/20 15:25 BP 113/63 03/21/20 15:25 Pulse Ox 97 03/21/20 15:25 - Orders/Labs/Meds Orders: Active Orders 24 hr Category Date Time Status Chest 2V [CR] Stat Exams 03/21/20 15:26 Taken Labs: Laboratory Tests 03/21/20 03/21/20 03/21/20 Range/Units 14:56 15:15 15:15 WBC 5.6 (5.0-10.0) 10^3/uL RBC 4.54 (4.00-5.50) 10^6/uL Hgb 14.0 (12.0-16.0) g/dL Hct 43.1 (37.0-47.0) % MCV 94.9 H (82.0-94.0) fL MCH 30.8 (27.0-32.0) pg MCHC 32.5 L (33.0-38.0) g/dL RDW Coeff of Sean 13.3 (11.0-15.0) % Plt Count 192 (150-400) 10^3/uL Neut % (Auto) 67.1 (35-85) % Lymph % (Auto) 13.8 (10-55) % [place] % (Auto) 16.3 H (0-16) % Eos % (Auto) 2.3 (0-5) % Baso % (Auto) 0.5 (0-3) % Neut # (Auto) 3.78 (1.80-7.00) 10^3/uL Lymph # (Auto) 0.78 L (1.00-4.80) 10^3/uL [place] # (Auto) 0.92 H (0.00-0.80) 10^3/uL Eos # (Auto) 0.13 (0.00-0.45) 10^3/uL Baso # (Auto) 0.03 10^3/uL D-Dimer, Quantitative (0.00-0.50) Sodium 137 (136-145) mEq/L Potassium 3.8 (3.5-5.0) mEq/L Chloride 99 (98-106) mEq/L Carbon Dioxide 27 (21-32) mmol/L BUN 13 (7-18) mg/dL Creatinine 1.1 H (0.6-1.0) mg/dL Est Cr Clr Drug Dosing 43.91 mL/min Estimated GFR (MDRD) 49 L (>=60) mL/min Glucose 87 (75-99) mg/dL Lactic Acid (0.4-2.0) mmol/L Calcium 9.0 (8.4-10.1) mg/dL Total Bilirubin 0.5 (0.0-1.0) mg/dL AST 35 (15-37) U/L ALT 26 (12-78) U/L Alkaline Phosphatase 46 (46-116) U/L C-Reactive Protein 1.5 H (0.2-0.8) mg/dL Total Protein 7.6 (6.4-8.2) g/dL Albumin 4.3 (3.4-5.0) g/dL Urine Color (YELLOW) Urine Appearance (CLEAR) Urine pH (4.5-8.0) Ur Specific Norman (1.003-1.020) Urine Protein (NEGATIVE) mg/dL Urine Glucose (UA) (NEGATIVE) mg/dL Urine Ketones (NEGATIVE) mg/dL Urine Occult Blood (NEGATIVE) Urine Nitrite (NEGATIVE) Urine Bilirubin (NEGATIVE) Urine Urobilinogen (0.2-1.0) EU/dL Ur Leukocyte Esterase (NEGATIVE) Urine RBC (0-5) /HPF Urine WBC (0-5) /HPF Ur Epithelial Cells (NOT SEEN) /HPF SARS CoV-2 RNA Rapid LATISHA Positive H (NEGATIVE) 03/21/20 03/21/20 03/21/20 Range/Units 15:15 15:15 15:50 WBC (5.0-10.0) 10^3/uL RBC (4.00-5.50) 10^6/uL Hgb (12.0-16.0) g/dL Hct (37.0-47.0) % MCV (82.0-94.0) fL MCH (27.0-32.0) pg MCHC (33.0-38.0) g/dL RDW Coeff of Sean (11.0-15.0) % Plt Count (150-400) 10^3/uL Neut % (Auto) (35-85) % Lymph % (Auto) (10-55) % [place]ville % (Auto) (0-16) % Eos % (Auto) (0-5) % Baso % (Auto) (0-3) % Neut # (Auto) (1.80-7.00) 10^3/uL Lymph # (Auto) (1.00-4.80) 10^3/uL [place] # (Auto) (0.00-0.80) 10^3/uL Eos # (Auto) (0.00-0.45) 10^3/uL Baso # (Auto) 10^3/uL D-Dimer, Quantitative 1.33 H (0.00-0.50) Sodium (136-145) mEq/L Potassium (3.5-5.0) mEq/L Chloride (98-106) mEq/L Carbon Dioxide (21-32) mmol/L BUN (7-18) mg/dL Creatinine (0.6-1.0) mg/dL Est Cr Clr Drug Dosing mL/min Estimated GFR (MDRD) (>=60) mL/min Glucose (75-99) mg/dL Lactic Acid 1.3 (0.4-2.0) mmol/L Calcium (8.4-10.1) mg/dL Total Bilirubin (0.0-1.0) mg/dL AST (15-37) U/L ALT (12-78) U/L Alkaline Phosphatase (46-116) U/L C-Reactive Protein (0.2-0.8) mg/dL Total Protein (6.4-8.2) g/dL Albumin (3.4-5.0) g/dL Urine Color Yellow (YELLOW) Urine Appearance Clear (CLEAR) Urine pH 6.0 (4.5-8.0) Ur Specific Norman 1.020 (1.003-1.020) Urine Protein Negative (NEGATIVE) mg/dL Urine Glucose (UA) Negative (NEGATIVE) mg/dL Urine Ketones Negative (NEGATIVE) mg/dL Urine Occult Blood Trace-intact H (NEGATIVE) Urine Nitrite Negative (NEGATIVE) Urine Bilirubin Negative (NEGATIVE) Urine Urobilinogen 0.2 (0.2-1.0) EU/dL Ur Leukocyte Esterase Negative (NEGATIVE) Urine RBC 0-5 (0-5) /HPF Urine WBC Not seen (0-5) /HPF Ur Epithelial Cells Occasional H (NOT SEEN) /HPF SARS CoV-2 RNA Rapid LATISHA (NEGATIVE) Meds: Medications Discontinued Medications Generic Name Dose Route Start Last Admin Trade Name Shay PRN Reason Stop Dose Admin Acetaminophen 1,000 mg 03/21/20 15:30 03/21/20 15:40 Tylenol Extra Strength PO 03/21/20 15:31 1,000 mg ONETIME ONE Administration - Re-Assessments/Exams Free Text/Narrative Re-Assessment/Exam: 03/21/20 Patient had covid testing on arrival here. Positive. 1600-Labs are all relatively normal. Chest xray is clear. Son is comfortable taking her home, ensuring she gets adequate hydration, treatment of fever, etc. Advised to return if develops any shortness of breath, chest discomfort or more issues with confusion. Departure - Departure Time of Disposition: 16:07 Disposition: Home, Self-Care 01 Condition: Fair Clinical Impression: COVID-19 - Discharge Information *PRESCRIPTION DRUG MONITORING PROGRAM REVIEWED*: No *COPY OF PRESCRIPTION DRUG MONITORING REPORT IN PATIENT GENA: No Instructions: COVID-19 Frequently Asked Questions, Prevent the Spread of COVID- 19 if You Are Sick - CDC Forms: ED Department Discharge Additional Instructions: 1. Rest 2. Push fluids 3. May take zinc, vitamin C and Vitamin D 4. Alternate tylenol with ibuprofen to control the fever 5. If develop worsening symptoms, ie. shortness of breath or any chest tightness, may need to be reevaluated 6. Call with any questions or concerns. Sepsis Event Note (ED) - Evaluation Sepsis Screening Result: No Definite Risk - Focused Exam Vital Signs: Vital Signs Temp Temp Pulse Resp BP Pulse Ox 03/21/20 15:55 100.1 F 03/21/20 15:40 100.1 F 03/21/20 15:25 100.1 F 92 18 113/63 97 - My Orders Last 24 Hours: My Active Orders 03/21/20 15:26 Chest 2V [CR] Stat - Assessment/Plan Last 24 Hours: My Active Orders 03/21/20 15:26 Chest 2V [CR] Stat
== END 2020-03-21 16:25 | disposition home or self-care (01) ==
LOC: CC.ED 14:14
DX: U07.1 COVID-19 (principal); J45.909 Unspecified asthma, uncomplicated; Z88.2 Allergy status to sulfonamides; Z79.82 Long term (current) use of aspirin; Z79.899 Other long term (current) drug therapy
CPT/HCPCS: 36415; 71046; 80053; 81001; 83605; 85025; 85379; 86140; 99284; 99285-25; A9270-GY; U0002

== ENCOUNTER 2021-05-09 11:20 | Emergency (ER) | payer MEDICARE, BC ==
--- NOTE | 2021-05-09 11:58 | EDM.PDOC ---
ED HPI GENERAL MEDICAL PROBLEM - General Chief Complaint: General Stated Complaint: SYNCOPE Time Seen by Provider: 05/09/21 11:25 Source of Information: Reports: Patient, Family History Limitations: Reports: No Limitations - History of Present Illness INITIAL COMMENTS - FREE TEXT/NARRATIVE: Mrs. Hi is a 71-year-old female patient that presents to the emergency department with family. Patient "fainted" earlier today. Patient states that she remembers going down but then awoke on the floor. Her believes that she may have hit her head. Patient is awake and alert on arrival. She has had syncopal type events in the past with the last event when she was ill with Covid. 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 Daughter reports that she is on a steroid medication for this. Patient denies chest pain, shortness of breath, nausea, vomiting, difficulty with urination or having bowel or movements. Denies any recent illness. Patient states she has been more tired over the last several days. Denies injury from the fall. - Related Data Allergies Allergy/AdvReac Type Severity Reaction Status Date / Time Sulfa (Sulfonamide AdvReac Rash Verified 05/09/21 11:29 Antibiotics) Home Meds: Home Meds Albuterol [Ventolin HFA] 2 puff INH QID PRN 07/13/13 [History] Aspirin [Low Dose Aspirin EC] 81 mg PO DAILY 07/13/13 [History] Lutein 20 mg PO DAILY 07/13/13 [History] Naproxen Sodium [Aleve] 220 mg PO DAILY PRN 07/13/13 [History] Cholecalciferol (Vitamin D3) [Vitamin D3] 5,000 unit PO DAILY 07/02/17 [History] Acetaminophen [Acetaminophen 8 Hour] 650 mg PO BEDTIME 10/15/17 [History] Pantoprazole Sodium 40 mg PO DAILY 10/15/17 [History] Hydrocortisone 10 mg PO QAM 12/09/17 [History] Hydrocortisone [Cortef] 5 mg PO 1200 03/21/20 [History] Past Medical History Respiratory History: Reports: Asthma Musculoskeletal History: Reports: Other (See Below) Neurological History: Reports: Other (See Below) Other Neuro History: brain inflammation Endocrine/Metabolic History: Reports: Circle's Disease - Infectious Disease History Infectious Disease History: Reports: Shingles Social & Family History - Family History Family Medical History: No Pertinent Family History - Tobacco Use Tobacco Use Status *Q: Never Tobacco User Second Hand Smoke Exposure: No - Caffeine Use Caffeine Use: Reports: None - Living Situation & Occupation Living situation: Reports: , with Spouse Occupation: Retired ED ROS GENERAL - Review of Systems Review Of Systems: See Below Constitutional: Reports: Fatigue, Decreased Appetite. Denies: Fever, Chills HEENT: Reports: Glasses. Denies: Vertigo, Vision Change Respiratory: Denies: Shortness of Breath, Wheezing, Cough, Sputum Cardiovascular: Reports: Syncope. Denies: Chest Pain, Dyspnea on Exertion, Palpitations Endocrine: Reports: Fatigue GI/Abdominal: Denies: Abdominal Pain, Anorexia, Black Stool, Bloody Stool, Constipation, Diarrhea, Decreased Appetite, Difficulty Swallowing : Denies: Discharge, Dysuria, Flank Pain, Frequency, Hematuria Musculoskeletal: Denies: Neck Pain, Muscle Pain, Muscle Stiffness Skin: Reports: Pallor, Dryness Neurological: Reports: Confusion. Denies: Headache, Numbness, Paresthesia, Pre- Existing Deficit Psychiatric: Reports: No Symptoms Hematologic/Lymphatic: Reports: No Symptoms Immunologic: Reports: No Symptoms ED EXAM, GENERAL - Physical Exam Exam: See Below Exam Limited By: No Limitations General Appearance: Alert, WD/WN, No Apparent Distress Eye Exam: Bilateral Eye: PERRL Ears: Normal External Exam, Hearing Grossly Normal Nose: Normal Inspection, No Blood. No: Nasal Deformity, Nasal Swelling, Nasal Drainage Throat/Mouth: Normal Inspection, Normal Lips, Normal Voice Head: Atraumatic, Normocephalic Neck: Normal Inspection, Supple, Non-Tender, Full Range of Motion Respiratory/Chest: No Respiratory Distress, Lungs Clear, Normal Breath Sounds, No Accessory Muscle Use Cardiovascular: Regular Rate, Rhythm, No Gallop, No JVD, No Murmur, No Rub, Other (Trace edema) GI/Abdominal: Normal Bowel Sounds, Soft, Non-Tender, No Organomegaly, No Distention, No Abnormal Bruit, No Mass, Pelvis Stable (Female) Exam: Deferred Rectal (Female) Exam: Normal Exam, Deferred Back Exam: Normal Inspection Extremities: Normal Inspection Neurological: Alert, Oriented, CN II-XII Intact, Normal Cognition, No Motor/Sensory Deficits Psychiatric: Normal Affect, Normal Mood Skin Exam: Warm, Dry, Intact, Pallor Lymphatic: No Adenopathy #1 Interpretation EKG Date: 05/09/21 Time: 11:30 Rhythm: NSR [place]: Normal P-Wave: Present QRS: Normal ST-T: Normal QT: Normal Comparison: NA - No Prior EKG Course - Vital Signs Last Recorded V/S: Last Vital Signs Temp 97.6 F 05/09/21 11:31 Pulse 76 05/09/21 11:31 Resp 18 05/09/21 11:31 BP 123/64 05/09/21 11:31 Pulse Ox - Orders/Labs/Meds Orders: Active Orders 24 hr Category Date Time Status Chest 2V [CR] Stat Exams 05/09/21 11:31 Taken Head wo Cont [CT] Stat Exams 05/09/21 11:30 Taken Zio Holter Monitor 8-15 Day [EK] Routine Ther 05/09/21 12:31 Ordered Labs: Laboratory Tests 05/09/21 05/09/21 05/09/21 Range/Units 11:31 11:48 11:48 WBC 10.4 (4.0-11.0) 10^3/uL RBC 3.69 L (4.00-5.50) x10^6/uL Hgb 11.6 L (12.0-16.0) g/dL Hct 36.5 L (37.0-47.0) % MCV 98.9 H (83.0-97.0) fL MCH 31.4 (27.0-32.0) pg MCHC 31.8 L (32.0-36.0) g/dL RDW Coeff of Sean 12.4 (11.0-15.0) % Plt Count 264 (150-400) 10^3/uL Immature Gran % (Auto) 0.4 (0.0-4.9) % Neut % (Auto) 76.9 H (41-71) % Lymph % (Auto) 11.6 L (24-44) % Sunflower % (Auto) 7.4 (0-10) % Eos % (Auto) 2.9 (0-6) % Baso % (Auto) 0.8 (0-1) % Neut # (Auto) 7.99 (1.80-8.00) x10^3/uL Lymph # (Auto) 1.21 (0.60-5.00) 10^3/uL Sunflower # (Auto) 0.77 (0.00-1.50) 10^3/uL Eos # (Auto) 0.30 (0.00-1.50) 10^3/uL Baso # (Auto) 0.08 (0.00-0.50) 10^3/uL Immature Gran # (Auto) 0.04 (0.00-0.49) 10^3/uL Sodium 140 (136-145) mEq/L Potassium 4.0 (3.5-5.0) mEq/L Chloride 103 (98-106) mEq/L Carbon Dioxide 30 (21-32) mmol/L BUN 14 (7-18) mg/dL Creatinine 0.9 (0.6-1.0) mg/dL Est Cr Clr Drug Dosing 54.94 mL/min Estimated GFR (MDRD) > 60 (>=60) mL/min Glucose 88 (75-99) mg/dL Calcium 8.7 (8.4-10.1) mg/dL Total Bilirubin 0.7 (0.0-1.0) mg/dL AST 28 (15-37) U/L ALT 20 (12-78) U/L Alkaline Phosphatase 53 (46-116) U/L Troponin I High Sens 19.6 (<=51) pg/mL C-Reactive Protein 2.1 H (0.2-0.8) mg/dL NT-Pro-B Natriuret Pep 477 (0-1000) pg/mL Total Protein 6.6 (6.4-8.2) g/dL Albumin 3.8 (3.4-5.0) g/dL Urine Color Yellow (YELLOW) Urine Appearance Slightly cloudy (CLEAR) Urine pH 7.5 (4.5-8.0) Ur Specific [place] 1.020 (1.003-1.020) Urine Protein Negative (NEGATIVE) mg/dL Urine Glucose (UA) Negative (NEGATIVE) mg/dL Urine Ketones Negative (NEGATIVE) mg/dL Urine Occult Blood Negative (NEGATIVE) Urine Nitrite Negative (NEGATIVE) Urine Bilirubin Negative (NEGATIVE) Urine Urobilinogen 0.2 (0.2-1.0) EU/dL Ur Leukocyte Esterase Trace H (NEGATIVE) Urine RBC 0-5 (0-5) /HPF Urine WBC 5-10 H (0-5) /HPF Ur Squamous Epith Cells Few H (NOT SEEN) /HPF Urine Bacteria Few H (NOT SEEN) /HPF Urinalysis Comment - Re-Assessments/Exams Free Text/Narrative Re-Assessment/Exam: Mrs. Hi is a 71-year-old that presented to the emergency department after having a syncopal episode at home. Patient was brought in by her daughter. Patient was awake and alert upon arrival. Denied any chest pain shortness of breath, nausea, vomiting. We obtained a CBC, CMP, CRP, troponin, EKG, chest x- ray, and a CT of her head. Laboratory work was unremarkable. Her hemoglobin was slightly decreased at 11. I reviewed the chest x-ray and showed not no obvious signs of infiltrate or signs of illness. The CT was reviewed by myself and confirmed with radiology for no acute findings. The EKG showed a normal sinus rhythm without any acute changes. Discussed these findings with the patient and family member. The plan will be to discharge the patient home with Zio monitor and they will return the monitor in 14 days. Patient is encouraged today hydrated and drink plenty of fluids orally. Follow-up with her primary care provider would be recommended especially following the return of her Zio monitor. Patient may return to activity as tolerated and may consider adding iron rich foods to her diet. Patient can call or return for symptoms that are worsening or if they have any questions. Departure - Departure Time of Disposition: 13:28 Disposition: Home, Self-Care 01 Condition: Fair Clinical Impression: Syncope and collapse Clinical Impression: (Ruled Out): PE, Pulmonary embolism - Discharge Information *PRESCRIPTION DRUG MONITORING PROGRAM REVIEWED*: Not Applicable *COPY OF PRESCRIPTION DRUG MONITORING REPORT IN PATIENT GENA: Not Applicable Instructions: Syncope Forms: ED Department Discharge Care Plan Goals: 1. Wear the Zio monitor and return as directed. 2. Activity and diet as tolerated. 3. Follow-up with primary care provider. May want to reassess hemoglobin as unsure if this is chronic. May add iron rich foods to your diet. 4. Push fluids to stay hydrated. 5. If having symptoms of being faint, attempt to sit down immediately to prevent fall and potential injury. 6. Call or return if symptoms worsen or if any concerns. Sepsis Event Note (ED) - Evaluation Sepsis Screening Result: No Definite Risk - Focused Exam Vital Signs: Vital Signs Temp Pulse Resp BP 05/09/21 11:31 97.6 F 76 18 123/64 - My Orders Last 24 Hours: My Active Orders 05/09/21 11:30 Head wo Cont [CT] Stat 05/09/21 11:31 Chest 2V [CR] Stat 05/09/21 12:31 Zio Holter Monitor 8- Day [EK] Routine - Assessment/Plan Last 24 Hours: My Active Orders 05/09/21 11:30 Head wo Cont [CT] Stat 05/09/21 11:31 Chest 2V [CR] Stat 05/09/21 12:31 Zio Holter Monitor 8- Day [EK] Routine
[2021-05-09 12:13] LABS: CHLORIDE,CL 103 mEq/L (98-106); SODIUM,NA 140 mEq/L (136-145)
== END 2021-05-09 13:45 | disposition home or self-care (01) ==
LOC: CC.ED 11:20
DX: R55 Syncope and collapse (principal); Z88.2 Allergy status to sulfonamides; Z79.82 Long term (current) use of aspirin; Z79.899 Other long term (current) drug therapy
CPT/HCPCS: 36415; 70450; 71046; 80053; 81001; 83880; 84484; 85025; 86140; 93005; 93246; 99284; 99284-25

== ENCOUNTER 2024-01-27 12:25 | Inpatient (IN) | payer MEDICARE, BC ==
[2024-01-27 13:00] LABS: BASOPHILS ABSOLUTE AUTO 0.01 10^3/uL (0.00-0.50); BASOPHILS PERCENT AUTO 0.1 % (0-1); EOSINOPHILS ABSOLUTE AUTO 1.05 10^3/uL (0.00-1.50); EOSINOPHILS PERCENT AUTO 6.1 % (0-6); HEMATOCRIT 38.1 % (37.0-47.0); IMMATURE GRAN ABSOLUTE AUTO 0.06 10^3/uL (0.00-0.49); IMMATURE GRAN PERCENT AUTO 0.3 % (0.0-4.9); LYMPHOCYTES ABSOLUTE AUTO 0.71 10^3/uL (0.60-5.00); LYMPHOCYTES PERCENT AUTO 4.1 % (24-44); MEAN CORPUSCULAR HEMOGLOBIN 29.9 pg (27.0-32.0); MEAN CORPUSCULAR HGB CONC 31.5 g/dL (32.0-36.0); MONOCYTES ABSOLUTE AUTO 0.74 10^3/uL (0.00-1.50); MONOCYTES PERCENT AUTO 4.3 % (0-10); NEUTROPHILS ABSOLUTE AUTO 14.66 x10^3/uL (1.80-8.00); NEUTROPHILS PERCENT AUTO 85.1 % (41-71); PLATELET COUNT,PLT 257 10^3/uL (150-400); RED BLOOD CELL COUNT 4.01 x10^6/uL (4.00-5.50); WHITE BLOOD CELL COUNT,WBC 17.2 10^3/uL (4.0-11.0)
[2024-01-27] MEDS: Sodium Chloride 0.9% 1,000 ML IV SCH (13:11)
[2024-01-27 13:14] LABS: ALBUMIN 3.7 g/dL (3.4-5.0); BILIRUBIN TOTAL 0.8 mg/dL (0.0-1.0); C-REACTIVE PROTEIN 11.08 mg/dL (<=0.50); CALCIUM 8.9 mg/dL (8.4-10.1); POTASSIUM,K 3.6 mEq/L (3.5-5.0)
[2024-01-27] MEDS ORDERED: Acetaminophen 325 MG Tab PO PRN (14:08)
[2024-01-27] MEDS ORDERED: Ibuprofen 200 MG Tab PO PRN (14:08)
[2024-01-27] MEDS ORDERED: Ondansetron 4 MG Tab.DIS PO PRN (14:08)
[2024-01-27] MEDS ORDERED: Ondansetron 4 MG/2 ML SDV IV PRN (14:08)
[2024-01-27] MEDS: Piperacillin/Tazobactam 4.5 GM in Sodium Chloride 0.9% 100 ML IV ONE (14:32)
[2024-01-27] MEDS: methylPREDNISolone Sodium Succinate 125 MG/2 ML SDV IVPUSH SCH (18:14)
[2024-01-27] MEDS ORDERED: Hydrocortisone 20 MG Tab PO SCH (20:00)
[2024-01-27] MEDS: Piperacillin/Tazobactam 4.5 GM in Sodium Chloride 0.9% 100 ML IV SCH (20:16)
[2024-01-27] MEDS: Acetaminophen 325 MG Tab PO SCH (20:18)
[2024-01-27] MEDS: Melatonin 3 MG Tab PO SCH (20:19)
[2024-01-27] MEDS: Rosuvastatin 10 MG Tab PO SCH (20:19)
[2024-01-28] MEDS: Pantoprazole 40 MG Tab.CR PO SCH (07:03)
[2024-01-28 07:45] LABS: BASOPHILS ABSOLUTE AUTO 0.02 10^3/uL (0.00-0.50); BASOPHILS PERCENT AUTO 0.1 % (0-1); EOSINOPHILS ABSOLUTE AUTO 0.04 10^3/uL (0.00-1.50); EOSINOPHILS PERCENT AUTO 0.3 % (0-6); HEMATOCRIT 37.1 % (37.0-47.0); HEMOGLOBIN 11.6 g/dL (12.0-16.0); IMMATURE GRAN ABSOLUTE AUTO 0.05 10^3/uL (0.00-0.49); IMMATURE GRAN PERCENT AUTO 0.4 % (0.0-4.9); LYMPHOCYTES ABSOLUTE AUTO 0.75 10^3/uL (0.60-5.00); LYMPHOCYTES PERCENT AUTO 5.6 % (24-44); MEAN CORPUSCULAR HEMOGLOBIN 30.1 pg (27.0-32.0); MEAN CORPUSCULAR HGB CONC 31.3 g/dL (32.0-36.0); MEAN CORPUSCULAR VOLUME 96.4 fL (83.0-97.0); MONOCYTES ABSOLUTE AUTO 0.11 10^3/uL (0.00-1.50); MONOCYTES PERCENT AUTO 0.8 % (0-10); NEUTROPHILS ABSOLUTE AUTO 12.51 x10^3/uL (1.80-8.00); NEUTROPHILS PERCENT AUTO 92.8 % (41-71); PLATELET COUNT,PLT 250 10^3/uL (150-400); RED BLOOD CELL COUNT 3.85 x10^6/uL (4.00-5.50); WHITE BLOOD CELL COUNT,WBC 13.5 10^3/uL (4.0-11.0)
[2024-01-28 08:05] LABS: ALBUMIN 2.9 g/dL (3.4-5.0); BILIRUBIN TOTAL 0.5 mg/dL (0.0-1.0); C-REACTIVE PROTEIN 12.86 mg/dL (<=0.50); CALCIUM 8.6 mg/dL (8.4-10.1); POTASSIUM,K 4.1 mEq/L (3.5-5.0); PROTEIN TOTAL,TP 6.4 g/dL (6.4-8.2)
[2024-01-28] MEDS: Enoxaparin 40 MG/0.4 ML Syringe SUBCUT SCH (08:05)
[2024-01-28] MEDS: Ascorbic Acid 500 MG Tab PO SCH (08:06)
[2024-01-28] MEDS: Lactobacillus Rhamnosus GG (Probiotic) Cap PO SCH (08:06)
[2024-01-28] MEDS: Aspirin 81 MG Tab.EC PO SCH (08:06)
[2024-01-28] MEDS: Magnesium Oxide 400 MG Tab PO SCH (08:06)
[2024-01-28] MEDS: Cholecalciferol (Vitamin D3) 5,000 UNIT Tab PO SCH (08:06)
[2024-01-29 08:07] LABS: ALBUMIN 2.7 g/dL (3.4-5.0); BILIRUBIN TOTAL 0.6 mg/dL (0.0-1.0); C-REACTIVE PROTEIN 6.92 mg/dL (<=0.50); CALCIUM 8.7 mg/dL (8.4-10.1); CREATININE 0.9 mg/dL (0.6-1.0); EST CRCL DRUG DOSING (CG) 53.33 mL/min; POTASSIUM,K 4.6 mEq/L (3.5-5.0); PROTEIN TOTAL,TP 6.4 g/dL (6.4-8.2)
[2024-01-29 08:08] LABS: BASOPHILS ABSOLUTE AUTO 0.01 10^3/uL (0.00-0.50); BASOPHILS PERCENT AUTO 0.1 % (0-1); EOSINOPHILS ABSOLUTE AUTO 0.01 10^3/uL (0.00-1.50); EOSINOPHILS PERCENT AUTO 0.1 % (0-6); HEMOGLOBIN 11.5 g/dL (12.0-16.0); IMMATURE GRAN PERCENT AUTO 0.6 % (0.0-4.9); LYMPHOCYTES ABSOLUTE AUTO 1.31 10^3/uL (0.60-5.00); LYMPHOCYTES PERCENT AUTO 7.5 % (24-44); MEAN CORPUSCULAR HEMOGLOBIN 30.1 pg (27.0-32.0); MEAN CORPUSCULAR HGB CONC 31.1 g/dL (32.0-36.0); MEAN CORPUSCULAR VOLUME 96.9 fL (83.0-97.0); MONOCYTES ABSOLUTE AUTO 0.41 10^3/uL (0.00-1.50); MONOCYTES PERCENT AUTO 2.3 % (0-10); NEUTROPHILS ABSOLUTE AUTO 15.73 x10^3/uL (1.80-8.00); NEUTROPHILS PERCENT AUTO 89.4 % (41-71); PLATELET COUNT,PLT 285 10^3/uL (150-400); RED BLOOD CELL COUNT 3.82 x10^6/uL (4.00-5.50); WHITE BLOOD CELL COUNT,WBC 17.6 10^3/uL (4.0-11.0)
[2024-01-30 07:31] LABS: HEMATOCRIT 37.9 % (37.0-47.0); HEMOGLOBIN 11.7 g/dL (12.0-16.0); IMMATURE GRAN PERCENT AUTO 0.6 % (0.0-4.9); LYMPHOCYTES ABSOLUTE AUTO 1.18 10^3/uL (0.60-5.00); LYMPHOCYTES PERCENT AUTO 7.7 % (24-44); MEAN CORPUSCULAR HEMOGLOBIN 29.9 pg (27.0-32.0); MEAN CORPUSCULAR HGB CONC 30.9 g/dL (32.0-36.0); MEAN CORPUSCULAR VOLUME 96.9 fL (83.0-97.0); MONOCYTES PERCENT AUTO 3.2 % (0-10); NEUTROPHILS ABSOLUTE AUTO 13.62 x10^3/uL (1.80-8.00); NEUTROPHILS PERCENT AUTO 88.5 % (41-71); PLATELET COUNT,PLT 298 10^3/uL (150-400); RED BLOOD CELL COUNT 3.91 x10^6/uL (4.00-5.50); WHITE BLOOD CELL COUNT,WBC 15.4 10^3/uL (4.0-11.0)
[2024-01-30 08:06] LABS: ALBUMIN 2.7 g/dL (3.4-5.0); BILIRUBIN TOTAL 0.8 mg/dL (0.0-1.0); C-REACTIVE PROTEIN 4.08 mg/dL (<=0.50); CALCIUM 8.6 mg/dL (8.4-10.1); POTASSIUM,K 4.3 mEq/L (3.5-5.0); PROTEIN TOTAL,TP 6.4 g/dL (6.4-8.2)
[2024-01-30] MEDS: Take Home: Amoxicillin/Clavulanate K 875-125 MG Tab, 2 Tab Pack PO ONE (10:02)
== END 2024-01-30 10:55 | disposition home or self-care (01) | DRG 194 ==
LOC: CC.ED 12:25 → CC.MS 13:46 → UNDOADMIN 14:07 → CC.MS 14:07
PROVIDERS: ADMIT Physician Assistant Medical; ATTEND Physician Assistant Medical
DX: J18.9 Pneumonia, unspecified organism (principal); E27.1 Primary adrenocortical insufficiency; G93.40 Encephalopathy, unspecified; J45.909 Unspecified asthma, uncomplicated; Z88.2 Allergy status to sulfonamides; Z79.82 Long term (current) use of aspirin; Z79.899 Other long term (current) drug therapy
CPT/HCPCS: 36415; 71046; 80053; 83605; 85025; 86140; 87040; 99223; 99232; 99233; 99239; 99285; A9270-GY; J1650; J2543; J2919; J3490; J7030